=== PATIENT | female | born 1985 | race Asian ===

== ENCOUNTER 2024-04-12 15:29 | Emergency (ER) | payer BC, OTHER ==
[~2024-04-12] VITALS: Ht 175.3 cm; Wt 95.3 kg
[2024-04-12 16:43] LABS: APPEARANCE,URINE SLIGHTLY CLOUDY (CLEAR); BILIRUBIN,URINE 1+ (NEGATIVE); BLOOD, URINE 3+ Ery/uL (NEGATIVE); COLOR,URINE YELLOW (YELLOW); KETONES,URINE NEGATIVE (NEGATIVE); LEUKOCYTE ESTERASE ,URINE NEGATIVE (NEGATIVE); NITRITE, URINE POSITIVE (NEGATIVE); PH,URINE 5.5 (5.0-8.0); PROTEIN,URINE TRACE mg/dl (NEGATIVE); UGLUCOSE NEGATIVE (NEGATIVE); UROBILINOGEN,URINE 0.2 EU/dL (0.2)
[2024-04-12 16:45] LABS: PREGNANCY TEST URINE QUAL NEGATIVE (NEGATIVE)
[2024-04-12 16:52] LABS: ADD URINE CULTURE YES; BACTERIA,URINE 3+ /HPF (None Seen); MUCUS,URINE Many /LPF (None Seen); RBC,URINE 51-80 /HPF (0-2)
[2024-04-12 17:17] LABS: BASOPHILS # (AUTO) 0.1 K/uL (0.0-0.2); BASOPHILS % (AUTO) 0.6 % (0.0-2.0); EOSINOPHILS % (AUTO) 0.3 % (0.0-6.0); HEMATOCRIT 31 % (33-45); HEMOGLOBIN 10.2 g/dL (11.5-14.8); LYMPHOCYTES # (AUTO) 1.9 K/uL (0.8-4.8); LYMPHOCYTES % (AUTO) 19.2 % (20.0-44.0); MEAN CORPUSCULAR HEMOGLOBIN 25 PG (26.0-33.0); MEAN CORPUSCULAR HGB CONC 33 g/dl (31.0-36.0); MEAN CORPUSCULAR VOLUME 77 fL (82-100); MONOCYTES # (AUTO) 0.6 K/uL (0.1-1.30); MONOCYTES % (AUTO) 5.8 % (2.0-12.0); NEUTROPHILS # (AUTO) 7.1 K/uL (1.8-8.9); NEUTROPHILS % (AUTO) 74.1 % (43.0-81.0); PLATELET COUNT (AUTO) 314 K/uL (150-450); RED BLOOD CELL COUNT(AUTO) 4.05 MIL/uL (4.0-5.2); RED CELL DISTRIBUTION WIDTH 15.6 % (11.5-15.0); WHITE BLOOD COUNT (AUTO) 9.6 K/uL (4.3-11.0)
[2024-04-12 17:43] LABS: CALCIUM, SERUM 8.7 mg/dL (8.5-10.1); CREATININE 0.8 mg/dL (0.6-1.3); POTASSIUM 3.6 mmol/L (3.5-5.1)
[2024-04-12] MEDS: IV NS 0.9% 1,000 ML BAG IV ONE (17:59)
[2024-04-12 18:03] LABS: ALBUMIN 3.9 g/dL (3.4-5.0); BILIRUBIN,TOTAL 0.5 mg/dL (0.2-1.0); TOTAL PROTEIN, SERUM 7.5 g/dL (6.4-8.2)
[2024-04-12 18:07] LABS: INR 1.02 (0.91-1.10); PARTIAL THROMBOPLASTIN TIME 31.2 SEC (24.3-34.3); PROTHROMBIN TIME 10.8 SECS (9.2-11.1)
[2024-04-12 18:12] LABS: BILIRUBIN,DIRECT 0.2 mg/dL (0.0-0.2)
[2024-04-12] MEDS ORDERED: TRAN650T2 PO (18:20)
[2024-04-12 20:40] VITALS: BP 130/93; TEMP 97.9; O2SAT 90
== END 2024-04-12 20:41 | disposition home or self-care (01) ==
LOC: ER 15:41
DX: N93.9 Abnormal uterine and vaginal bleeding, unspecified (principal); R10.9 Unspecified abdominal pain; R42 Dizziness and giddiness; Z86.018 Personal history of other benign neoplasm
CPT/HCPCS: 99284; 96360; 76856; 85025; 80048; 80076; 84703; 81001; 36415; 85730; J7030